=== PATIENT | male | born 1945 | race Caucasian/White ===

== ENCOUNTER → 2021-11-03 09:35 | Outpatient (CLI) | payer MEDICARE, OTHER, SELFPAY ==
[2021-11-03 11:57] LABS: Hematocrit 44.3 % (41-53); Hemoglobin 15.5 g/dL (13.5-17.5); Mean Corpuscular Hemoglobin 33.1 PG (26-34); Mean Corpuscular Volume 94.6 fL (80-100); Platelet Count 162 X10^3/uL (150-400); Red Blood Cell Count 4.69 X10^6/uL (4.5-5.9); Red Cell Distribution Width 13.9 % (11.6-14.8)
[2021-11-03 12:02] LABS: Alanine Aminotransferase 50 IU/L (<50); Albumin 4.5 g/dL (3.5-5.0); Albumin Globulin Ratio 1.6 (1.0-2.8); Alkaline Phosphatase 76 U/L (38-126); Aspartate Aminotransferase 30 IU/L (17-59); BUN Creatinine Ratio 14.6 (6-22); Bilirubin Total 0.7 mg/dL (0.2-1.3); Blood Urea Nitrogen 14 mg/dL (9-20); Carbon Dioxide 27 mmol/L (22-32); Chloride 105 mmol/L (98-107); Cholesterol 189 mg/dL (140-199); Estimated Glomerular Filt Rate > 60 mL/min (>60); Globulin 2.8 g/dL (1.7-4.1); Glucose 114 mg/dL (80-110); HDL Cholesterol 60 mg/dL (40-60); HEMOLYSIS 19 (0-50); LDL Cholesterol Calculated 110 mg/dL (<100); Potassium 4.6 mmol/L (3.4-5.1); Sodium 139 mmol/L (137-145); Total Protein 7.3 g/dL (6.3-8.2); Triglycerides 94 mg/dL (35-150)
[2021-11-03 12:33] LABS: Prostate Specific Antigen 0.763 ng/mL (0.10-4.00)
[2021-11-03 12:44] LABS: TSH w/ Reflex to FT4 1.39 uIU/mL (0.47-4.68)
== END ==
PROVIDERS: PCP Internal Medicine; Referring Provider Internal Medicine; Visit Provider Internal Medicine
DX: E78.2 Mixed hyperlipidemia (principal); N40.0 Benign prostatic hyperplasia without lower urinary tract symptoms; I10 Essential (primary) hypertension
CPT/HCPCS: 36415; 80053; 80061; 84153; 84443; 85027

== ENCOUNTER → 2022-02-19 08:07 | Outpatient (CLI) | payer MEDICARE, OTHER, SELFPAY ==
--- NOTE | 2022-02-19 08:08 | DI.ECHO.S_ITS ---
[facility] +---------+ : : [address] : : : : [id number] : : : : Phone: [phone]---------+ Echocardiogram Report + + :Name: JHON BERNSTEIN Study Date: 02/19/2022 Height: 72 in : :[facility] ReadingLocation: Weight: 235 lb : : Gender: Male BSA: 2.3 m2 : :: 1945 Age: 76 yrs BP: 160/110 mmHg: :Reason For Study: ATRIAL FIBRILLATION : :Ordering Physician: CHANO, : :MAKSIM Performed By: Rubina Montoya : :Referring: MAKSIM MADDEN : + + Interpretation Summary There is mild concentric left ventricular hypertrophy. The ejection fraction is estimated to be 35-40%. There is mild global hypokinesis of the left ventricle. There is apical hypokinesis. The right ventricle is mildly dilated. The left atrium is severely dilated. There is mild mitral regurgitation. There is mild aortic regurgitation. There is mild tricuspid regurgitation. The right ventricular systolic pressure is estimated to be at least 34 mmHg based on an estimated right atrial pressure of 8 mm Hg. Procedure: A two-dimensional transthoracic echocardiogram with color flow and Doppler was performed. The study quality was technically adequate. There is no prior echocardiogram noted for this patient. The patient was in atrial fibrillation with heart rates between 70-100 bpm during the exam. Left Ventricle: The left ventricle is normal in size. There is mild concentric left ventricular hypertrophy. The ejection fraction is estimated to be 35-40%. There is mild global hypokinesis of the left ventricle. There is apical hypokinesis. Diastolic function could not be accurately assessed due to atrial fibrillation. Right Ventricle: The right ventricle is mildly dilated. Right ventricular systolic function is mildly reduced. Atria: The left atrium is severely dilated. Right atrial size is normal. There is no Doppler evidence for an interatrial shunt. Mitral Valve: The mitral valve leaflets appear mildly thickened, but open well. There is mild to moderate mitral annular calcification. There is mild mitral regurgitation. Aortic Valve: The aortic valve is trileaflet. The aortic valve is slightly calcified. The aortic valve opens well. There is no aortic valve stenosis. There is mild aortic regurgitation. Tricuspid Valve: The tricuspid valve is normal in structure and function. There is mild tricuspid regurgitation. The right ventricular systolic pressure is estimated to be at least 34 mmHg based on an estimated right atrial pressure of 8 mm Hg. Pulmonic Valve: The pulmonic valve leaflets are thin and pliable; valve motion is normal. There is mild to moderate pulmonic regurgitation. Great Vessels: The aortic root is borderline dilated. The ascending aorta is mild-moderately enlarged. The IVC is dilated (diameter is greater than 2.1 cm) yet it collapses greater than 50% with a sniff. This suggests a right atrial pressure of 8 mm Hg. Pericardium/ Pleura There is no pericardial effusion. There is no pleural effusion. MMode/2D Measurements & Calculations LVIDd: 5.4 cm LVOT diam: 2.4 cm LVIDs: 4.3 cm Ao root diam: 4.0 cm FS: 20.4 % asc Aorta Diam: 4.4 cm EPSS: 1.3 cm Ao Arch Diam (Prox Trans): 3.8 cm IVSd: 1.1 cm LVPWd: 0.92 cm LV coughlin. diameter/BSA (cm/m^2): 2.4 LV sys. diameter/BSA (cm/m^2): 1.9 LA A2 area: 38.7 cm2 RA long axis: 5.9 cm LA A4 area: 34.0 cm2 RA area: 21.0 cm2 LA length (vol): 6.8 cm RA vol: 63.9 ml LA vol: 163.6 ml RA : 28.0 ml/m2 LA vol index: 71.7 ml/m2 IVC diam: 2.2 cm RVD1 (basal): 4.4 cm RVD2 (mid): 3.8 cm TAPSE: 1.4 cm Doppler Measurements & Calculations Ao V2 max: 118.1 cm/sec LVOT Max Gareth: 62.4 cm/sec Ao V2 mean: 89.1 cm/sec LV V1 max P.6 mmHg Ao max P.6 mmHg LV V1 VTI: 12.6 cm Ao mean P.5 mmHg EZEKIEL(I,D): 2.5 cm2 Ao V2 VTI: 23.0 cm EZEKIEL(V,D): 2.4 cm2 sev ratio: 0.55 EZEKIEL indexed to BSA (cm^2/m^2): 1.1 MV E max gareth: 92.2 cm/sec TR max gareth: 255.5 cm/sec MV A max gareth: 1.7 cm/sec TR max P.1 mmHg MV E/A: 52.9 PA V2 max: 89.0 cm/sec Med Peak E' Gareth: 6.5 cm/sec PA V2 mean: 57.3 cm/sec E/E' med: 14.2 PA mean P.5 mmHg Lat Peak E' Gareth: 11.9 cm/sec PA pr(Accel): 39.6 mmHg E/E' lat: 7.7 E/e' average: 11.0 MV dec time: 0.22 sec SV(LVOT): 57.0 ml Reading Physician:04:27 PM
== END ==
PROVIDERS: PCP Internal Medicine; Referring Provider Internal Medicine; Visit Provider Internal Medicine
DX: I48.20 Chronic atrial fibrillation, unspecified (principal); I08.3 Combined rheumatic disorders of mitral, aortic and tricuspid valves; I77.89 Other specified disorders of arteries and arterioles
CPT/HCPCS: 93306

== ENCOUNTER → 2022-03-03 12:08 | Outpatient (CLI) | payer MEDICARE, OTHER, SELFPAY ==
[2022-03-03 14:34] LABS: COVID19 -Nasal RAPID Negative (Negative)
--- NOTE | 2022-03-03 14:37 | PM.TREADMILL ---
Cardiac Stress Test Report Referral & Results Date Patient Seen: 03/03/22 Requesting provider: Miguel Lim Indication: Atrial fibrillation Rest ECG: Atrial fibrillation Procedure Note: Today following both written and verbal informed consent the patient was exercised according to a standard Issa protocol patient went for a total of 7 minutes 26 seconds achieving a maximum heart rate of 190 maximum systolic blood pressure of 164. This is approximately 10.1 METS. Exercise was terminated at this point because of targets were met. Patient was also given Cardiolite through a previously started Hep-Lock IV by the diagnostic imaging staff approximately 1 minute prior to the cessation of exercise. Patient was quickly tachycardic but overall peak heart rate was not excessive. Blood pressure response to exercise was normal. No ST-T segment changes identified. Occasional to rare PVC in recovery only Functional aerobic impairment rates-20% on the active scale or 120% of normal Impression: Atrial fibrillation with peak heart rate of 190 although somewhat quickly tachycardic with minimal exercise. No evidence of ischemia Excellent exercise capacity Please see perfusion imaging report as well for details regarding possible ischemia Please note: Actual ECG tracings can be found in the PACS system.
--- NOTE | 2022-03-03 21:12 | DI.NM.S_ITS ---
DATE OF SERVICE: 03/03/2022 PROCEDURE PERFORMED: Exercise perfusion study. INDICATION: Underlying AFib with CHF. RADIOPHARMACEUTICAL: 24.8 millicurie technetium-99m Myoview IV was injected at stress. This is an exercise stress study only. CARDIAC STRESS: The patient underwent a exercise perfusion study under the supervision of an attending staff. The patient walked on Issa protocol for 7 minutes and 26 seconds, achieved maximum heart rate of 190, which was 131 percent of target heart rate. Baseline blood pressure 140/80 and peak blood pressure 164/90. Baseline rhythm was atrial fibrillation with controlled ventricular rate. During stress, the patient has enhanced chronotropic response. The patient remained in AFib with some nonspecific ST-T changes. No sustained ventricular tachycardia. No significant symptoms were reported. The patient achieved 10.1 METs of workload. REBEKAH -20 percent. RAW DATA: There is increased subdiaphragmatic activity. The patient's weight is 246 pounds. GATED STUDY: Stress LV ejection fraction 55 percent without any obvious wall motion abnormalities. Stress end-diastolic volume 164 mL. Lung/heart ratio 0.29, which is within normal limits. TID ratio 1.08, which is within normal limits. Perfusion: The stress supine and stress prone images were compared to each other. Stress supine images revealed small size, mildly decreased perfusion of distal inferior lateral wall, which improved during stress prone images, suggestive of diaphragmatic tissue attenuation artifact. No convincing ischemia or infarction pattern during stress prone images. CONCLUSION: I will call this study likely a normal myocardial perfusion study with evidence of tissue attenuation artifact, which improved during stress prone images. Good exercise tolerance. Baseline atrial fibrillation with enhanced chronotropic response during exercise. Left ventricular ejection fraction of about 55 percent. As far as perfusion scan is concerned, this is a low-risk myocardial perfusion scan. yAad Heath - EDUARD/nikko/telma doc#: [id number]/job#: [id number] dd: 03/03/2022 17:08:00 dt: 03/03/2022 20:58:00 DICTATING MD/COPIES TO: Gunjan Goode MD COPIES MNE: TOBI;
== END ==
PROVIDERS: PCP Internal Medicine; Referring Provider Internal Medicine; Visit Provider Internal Medicine
DX: I50.22 Chronic systolic (congestive) heart failure (principal); I48.20 Chronic atrial fibrillation, unspecified; Z20.822 Contact with and (suspected) exposure to COVID-19
CPT/HCPCS: 78451; 87635; 93016; 93017; 93018; A9502

== ENCOUNTER → 2022-07-03 14:55 | Outpatient (CLI) | payer MEDICARE, OTHER, SELFPAY ==
--- NOTE | 2022-07-03 14:56 | DI.RAD.S_ITS ---
PROCEDURE: XR LUMBAR SPINE 2-3V INDICATIONS: back pain TECHNIQUE: 3 views of the lumbar spine were acquired. COMPARISON: None. FINDINGS: Bones: 5 [id number] vertebrae are present. There is normal bony alignment. No vertebral body compression fractures. No suspicious bony lesions. Multilevel disc space narrowing degenerative endplate changes are most severe at the L4-5 level. There is multilevel facet hypertrophy that is worst at L4-5 and L5-S1. Soft tissues: Overlying bowel gas pattern is normal. No suspicious soft tissue calcifications. IMPRESSION: Moderate multilevel spondylosis. Lumbar spine MRI could be performed for further evaluation if indicated clinically. Approved by: See Engel M.D. on 07/03/2022 at 16:01
--- NOTE | 2022-07-03 14:56 | DI.RAD.S_ITS ---
PROCEDURE: XR HIP W PEL IF DONE ELVIS MIN 4V INDICATIONS: hip pain TECHNIQUE: AP pelvis with lateral views of each hip. COMPARISON: None. FINDINGS: Bones: No acute fractures or dislocations. Pelvic ring appears intact. No suspicious bony lesions. Moderate to severe left and moderate right degenerative changes are seen in the hips with axial joint space narrowing, subchondral sclerosis, and marginal osteophyte formation. Degenerative changes are also seen in the lumbar spine. Soft tissues: The visualized bowel gas pattern is normal. No suspicious soft tissue calcifications. 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 Degenerative changes are also seen in the lumbar spine. Approved by: See Engel M.D. on 07/03/2022 at 16:03
== END ==
PROVIDERS: PCP Internal Medicine; Referring Provider Internal Medicine; Visit Provider Internal Medicine
DX: M47.816 Spondylosis without myelopathy or radiculopathy, lumbar region (principal); M47.817 Spondylosis without myelopathy or radiculopathy, lumbosacral region; M16.0 Bilateral primary osteoarthritis of hip; M54.50 Low back pain, unspecified; G89.29 Other chronic pain
CPT/HCPCS: 72100; 73522

== ENCOUNTER → 2023-05-26 08:43 | Outpatient (CLI) | payer MEDICARE, OTHER, SELFPAY ==
[2023-05-26 09:23] LABS: Hematocrit 42.3 % (41-53); Hemoglobin 14.5 g/dL (13.5-17.5); Mean Corpuscular HGB Conc 34.4 % (30-36); Mean Corpuscular Hemoglobin 33.5 PG (26-34); Mean Corpuscular Volume 97.4 fL (80-100); Platelet Count 168 X10^3/uL (150-400); Red Blood Cell Count 4.34 X10^6/uL (4.5-5.9); Red Cell Distribution Width 13.7 % (11.6-14.8); White Blood Cell Count 5.6 X10^3/uL (4.5-11.0)
[2023-05-26 09:37] LABS: Alanine Aminotransferase 22 IU/L (<50); Albumin 4.1 g/dL (3.5-5.0); Albumin Globulin Ratio 1.6 (1.0-2.8); Alkaline Phosphatase 63 U/L (38-126); Aspartate Aminotransferase 22 IU/L (17-59); Bilirubin Total 0.8 mg/dL (0.2-1.3); Blood Urea Nitrogen 16 mg/dL (9-20); Calcium 9.4 mg/dL (8.4-10.2); Carbon Dioxide 27 mmol/L (22-32); Chloride 103 mmol/L (98-107); Cholesterol 211 mg/dL (140-199); Estimated Glomerular Filt Rate > 60 mL/min (>60); Globulin 2.5 g/dL (1.7-4.1); Glucose 115 mg/dL (80-110); HDL Cholesterol 55 mg/dL (40-60); HEMOLYSIS < 15 (0-50); LDL Cholesterol Calculated 130 mg/dL (<100); Potassium 4.7 mmol/L (3.4-5.1); Sodium 136 mmol/L (137-145); Total Protein 6.6 g/dL (6.3-8.2); Triglycerides 130 mg/dL (35-150)
[2023-05-26 10:07] LABS: Prostate Specific Antigen 0.842 ng/mL (0.10-4.00)
== END ==
PROVIDERS: PCP Internal Medicine; Referring Provider Internal Medicine; Visit Provider Internal Medicine
DX: I50.22 Chronic systolic (congestive) heart failure (principal); N40.1 Benign prostatic hyperplasia with lower urinary tract symptoms; N13.8 Other obstructive and reflux uropathy; E78.2 Mixed hyperlipidemia; Z79.01 Long term (current) use of anticoagulants
CPT/HCPCS: 36415; 80053; 80061; 84153; 85027

== ENCOUNTER → 2024-06-12 11:34 | Outpatient (CLI) | payer MEDICARE, OTHER, SELFPAY ==
[2024-06-12 13:15] LABS: Prostate Specific Antigen 0.843 ng/mL (0.10-4.00)
== END ==
LOC: LAB 11:35
PROVIDERS: PCP Internal Medicine; Referring Provider Internal Medicine; Visit Provider Internal Medicine
DX: I48.20 Chronic atrial fibrillation, unspecified (principal); N40.1 Benign prostatic hyperplasia with lower urinary tract symptoms; E78.2 Mixed hyperlipidemia; N13.8 Other obstructive and reflux uropathy
CPT/HCPCS: 36415; 84153

== ENCOUNTER → 2025-06-21 09:33 | Outpatient (CLI) | payer MEDICARE, OTHER, SELFPAY ==
[2025-06-21 10:03] LABS: Hematocrit 42.9 % (41-53); Hemoglobin 14.6 g/dL (13.5-17.5); Mean Corpuscular HGB Conc 34.2 % (30-36); Mean Corpuscular Hemoglobin 33.0 PG (26-34); Mean Corpuscular Volume 96.6 fL (80-100); Platelet Count 183 X10^3/uL (150-400)
[2025-06-21 10:28] LABS: Alanine Aminotransferase 31 IU/L (<50); Albumin 4.5 g/dL (3.5-5.0); Albumin Globulin Ratio 1.7 (1.0-2.8); Alkaline Phosphatase 75 U/L (38-126); Blood Urea Nitrogen 16 mg/dL (9-20); Calcium 9.3 mg/dL (8.4-10.2); Carbon Dioxide 29 mmol/L (22-32); Chloride 101 mmol/L (98-107); Cholesterol 224 mg/dL (140-199); Estimated Glomerular Filt Rate > 60 mL/min (>60); Globulin 2.6 g/dL (1.7-4.1); Glucose 114 mg/dL (70-99); HDL Cholesterol 79 mg/dL (40-60); HEMOLYSIS < 15 (0-50); Potassium 4.9 mmol/L (3.4-5.1); Sodium 137 mmol/L (137-145); Total Protein 7.1 g/dL (6.3-8.2); Triglycerides 96 mg/dL (35-150)
[2025-06-21 11:00] LABS: Prostate Specific Antigen 0.921 ng/mL (0.10-4.00); TSH w/ Reflex to FT4 2.22 uIU/mL (0.47-4.68)
== END ==
PROVIDERS: PCP Internal Medicine; Referring Provider Internal Medicine; Visit Provider Internal Medicine
DX: N40.1 Benign prostatic hyperplasia with lower urinary tract symptoms (principal); N13.8 Other obstructive and reflux uropathy; E78.2 Mixed hyperlipidemia; I48.20 Chronic atrial fibrillation, unspecified
CPT/HCPCS: 36415; 80053; 80061; 84153; 84443; 85027